=== PATIENT | female | born 1990 | race Caucasian/White ===

== ENCOUNTER 2016-07-16 10:35 | Emergency (ER) | payer MEDICAID ==
[~2016-07-16] VITALS: Ht 167.6 cm; Wt 59.0 kg
[2016-07-16 10:43] VITALS: BP 114/71
[2016-07-16] MEDS ORDERED: ENBREL25 MG SUBQ (10:47)
[2016-07-16] MEDS ORDERED: MINASTRIN 24 F1 EACH PO (10:48)
[2016-07-16] MEDS ORDERED: MULTIVITAMINS1 EAC2 ORAL (10:48)
[2016-07-16] MEDS ORDERED: ANTI-ITCH28 G1 TP (10:59)
[2016-07-16 11:06] VITALS: BP 107/69
--- NOTE | 2016-07-16 11:06 | Emergency Room Report ---
History of Present Illness General Chief Complaint: Skin Rash/Abscess Source: Patient Present Illness HPI Patient is a 26-year-old female presented after increased redness and itching to her right small finger. The patient reports having prior history of recent hiking. She had denied definite insect bite. She reports having had increased itching which was somewhat improved with Ana. She noticed that they itching had somewhat increased. The patient was taking Enbrel for arthritis. She denied any fever. Allergies: Coded Allergies: No Known Allergies (Unverified , 07/16/16) Patient History Past Medical History: see triage record Last Menstrual Period: 2 weeks ago Reviewed Nursing Documentation: PMH: Agreed, PSxH: Agreed Nursing Documentation-PMH Past Medical History: No History, Except For Review of Systems All Other Systems: negative except mentioned in HPI Physical Exam Vital Signs Date Time Temp Pulse Resp B/P Pulse Ox O2 Delivery O2 Flow Rate FiO2 07/16/16 10:43 97.9 75 16 114/71 100 Room Air General Appearance: well appearing, no apparent distress, alert, GCS 15, non- toxic Head: normocephalic, atraumatic ENT: hearing grossly normal, normal voice Neck: full range of motion, supple Respiratory: no respiratory distress, speaking full sentences Musculoskeletal: no calf tenderness Neurologic: normal inspection, alert, oriented x3, normal gait Psychiatric: mood/affect normal Skin: other - patchy erythema near area of papular lesion without purulent Medical Decision Making Diagnostic Impression: Primary Impression: Insect bite ER Course Patient presented for skin rash. Differential diagnosis included was not limited to insect bite, scabies, contact dermatitis, septic joint, allergic reaction and among others. Patient's benign exam and does not appear to require any further imaging or laboratory testing at this time. The patient appears to have a insect bite with a mild allergic reaction localized to the right hand. The patient is given prescription for hydrocortisone cream. The patient is advised to continue taking antihistamines. The patient is advised followup with her primary care physician for recheck Last Vital Signs Date Time Temp Pulse Resp B/P Pulse Ox O2 Delivery O2 Flow Rate FiO2 07/16/16 10:43 97.9 16 114/71 100 Room Air 07/16/16 10:43 75 Status: unchanged Disposition: HOME, SELF-CARE Condition: Stable Scripts Hydrocortisone 2% Cream (ANTI-ITCH 2% CREAM) Y Cr 28 GM TP DAILY for Itching, #28 GM Prov: Luciano Barrios 07/16/16 Patient Instructions: Pruritus Luciano Barrios Jul 16, 2016 11:06
== END 2016-07-16 11:06 | disposition home or self-care (01) ==
LOC: EMR 11:06
DX: S60.466A Insect bite (nonvenomous) of right little finger, initial encounter (principal); M19.90 Unspecified osteoarthritis, unspecified site; W57.XXXA Bitten or stung by nonvenomous insect and other nonvenomous arthropods, initial encounter; Y93.9 Activity, unspecified; Y92.9 Unspecified place or not applicable
CPT/HCPCS: 99283